=== PATIENT | female | born 1930 | race African-American/Black ===

== ENCOUNTER 2016-11-15 08:12 | Outpatient (CLI) | payer MEDICARE ==
[2016-11-15 08:29] LABS: #Basophils 0.1 thou/uL (0.0-0.2); #Eosinphils 0.1 thou/uL (0.0-0.7); #Lymphocytes 2.1 thou/uL (1.20-3.40); #Monocytes 0.5 thou/uL (0.11-0.59); %Basophils 1.1 % (0.0-1.0); %Eosinophils 1.7 % (0.0-10.0); %Lymphocytes 26.9 % (21.0-51.0); %Monocytes 6.8 % (0.0-10.0); %Neutrophils 63.4 % (42.0-75.0); Hemoglobin 13.3 g/dL (12.0-16.0); Mean Corpuscular HGB CONC 32.2 g/dL (32.0-36.0); Mean Corpuscular Hemoglobin 28.9 pg (27.0-31.0); Mean Corpuscular Volume 89.7 fl (81.0-99.0); Mean Platelet Volume 7.2 fL (7.4-10.4); Platelet Count 355 thou/uL (130-400); RBC Distribution Width 12.2 % (11.5-14.5); Red Blood Cell (RBC) Count 4.62 mill/uL (4.20-5.40); White Blood Cell (WBC) Count 7.9 thou/uL (4.8-10.8)
[2016-11-15 09:08] LABS: ALT (SGPT) 25 U/L (8-55); AST (SGOT) 23 U/L (5-34); Albumin 4.3 g/dL (3.4-4.8); Alkaline Phosphatase 67 U/L (40-150); Anion Gap 13 mmol/L (10-20); BUN (Urea Nitrogen) 14 mg/dL (9.8-20.1); Bilirubin, Direct 0.1 mg/dL (0.1-0.3); Bilirubin, Total 0.4 mg/dL (0.2-1.2); Calc. Creatinine Clearance 0 mL/min (70-130); Calcium 9.7 mg/dL (7.8-10.44); Carbon Dioxide 26 mmol/L (23-31); Cardiac Risk 4.4 (Less than 4.5); Chloride 105 mmol/L (98-107); Cholesterol 195 mg/dl (< 200 Desired); Estimated GFR-MDRD 62; Glucose 106 mg/dL (83-110); HDL Cholesterol 44 mg/dL (>60 Neg Risk); LDL Cholesterol, Calculated 109 mg/dL; Potassium 3.8 mmol/L (3.5-5.1); Protein, Total 7.8 g/dL (6.0-8.3); Sodium 140 mmol/L (136-145); Triglycerides 209 mg/dL (Less than 150)
== END 2016-11-15 08:13 ==
LOC: MADLABBHPM 08:12
PROVIDERS: ATTEND Family Medicine
DX: I48.91 Unspecified atrial fibrillation (principal); I10 Essential (primary) hypertension
CPT/HCPCS: 36415; 80048; 80061; 80076; 85025

== ENCOUNTER 2017-02-16 08:40 | Outpatient (CLI) | payer MEDICARE ==
[2017-02-16 09:09] LABS: #Basophils 0.1 thou/uL (0.0-0.2); #Eosinphils 0.2 thou/uL (0.0-0.7); #Monocytes 0.5 thou/uL (0.11-0.59); #Neutrophils 4.3 thou/uL (1.40-6.50); %Basophils 1.3 % (0.0-1.0); %Eosinophils 2.6 % (0.0-10.0); %Lymphocytes 28.3 % (21.0-51.0); %Monocytes 6.8 % (0.0-10.0); %Neutrophils 61.1 % (42.0-75.0); Hemoglobin 13.2 g/dL (12.0-16.0); Mean Corpuscular HGB CONC 33.6 g/dL (32.0-36.0); Mean Corpuscular Hemoglobin 30.1 pg (27.0-31.0); Mean Corpuscular Volume 89.5 fl (81.0-99.0); Mean Platelet Volume 7.2 fL (7.4-10.4); Platelet Count 348 thou/uL (130-400); RBC Distribution Width 12.8 % (11.5-14.5); White Blood Cell (WBC) Count 7.1 thou/uL (4.8-10.8)
[2017-02-16 09:15] LABS: ALT (SGPT) 23 U/L (8-55); AST (SGOT) 17 U/L (5-34); Albumin 4.1 g/dL (3.4-4.8); Alkaline Phosphatase 71 U/L (40-150); Anion Gap 14 mmol/L (10-20); BUN (Urea Nitrogen) 18 mg/dL (9.8-20.1); Bilirubin, Direct 0.2 mg/dL (0.1-0.3); Bilirubin, Total 0.4 mg/dL (0.2-1.2); Calc. Creatinine Clearance 0 mL/min (70-130); Calcium 9.7 mg/dL (7.8-10.44); Carbon Dioxide 25 mmol/L (23-31); Cardiac Risk 3.9 (Less than 4.5); Chloride 105 mmol/L (98-107); Cholesterol 178 mg/dl (< 200 Desired); Estimated GFR-MDRD 56; Glucose 104 mg/dL (83-110); HDL Cholesterol 46 mg/dL (>60 Neg Risk); LDL Cholesterol, Calculated 97 mg/dL; Potassium 3.9 mmol/L (3.5-5.1); Sodium 140 mmol/L (136-145); Triglycerides 175 mg/dL (Less than 150)
== END 2017-02-16 08:41 | disposition home or self-care (01) ==
LOC: MADLABBHPM 08:40
PROVIDERS: ATTEND Family Medicine
DX: N18.3 Chronic kidney disease, stage 3 (moderate) (principal); E78.5 Hyperlipidemia, unspecified; I48.91 Unspecified atrial fibrillation
CPT/HCPCS: 36415; 80048; 80061; 80076; 85025

== ENCOUNTER 2019-04-11 07:15 | Emergency (ER) | payer MEDICARE ==
[2019-04-11] MEDS ORDERED: predniSONE 20 MG TAB ONE (08:24)
== END 2019-04-11 08:30 | disposition home or self-care (01) ==
LOC: MADERS 07:15
DX: M54.41 Lumbago with sciatica, right side (principal); I25.10 Atherosclerotic heart disease of native coronary artery without angina pectoris; I10 Essential (primary) hypertension; E78.5 Hyperlipidemia, unspecified; E78.00 Pure hypercholesterolemia, unspecified; M19.90 Unspecified osteoarthritis, unspecified site; Z79.82 Long term (current) use of aspirin; Z79.899 Other long term (current) drug therapy
CPT/HCPCS: 99283; J7512

== ENCOUNTER 2019-04-29 09:56 | Outpatient (CLI) | payer MEDICARE ==
--- NOTE | 2019-04-29 10:50 | CT ---
LUMBAR SPINE CT WITHOUT CONTRAST: DATE: 04/29/2019. COMPARISON: None. HISTORY: Sciatica without trauma. Right-sided pain. TECHNIQUE: Axial CT imaging obtained at 2.5 mm intervals through the lumbar spine without contrast. Coronal and sagittal reformatted imaging obtained. FINDINGS: Evaluation for central canal and/or neural foraminal stenosis is limited on routine CT. Incompletely imaged transvenous pacing device present. Small pericardial effusion partially visualize d. There is mild nonspecific distention of the gallbladder. Probable small cyst emanates from upper pole of right kidney measuring 1 cm. There are multiple tiny hyperdense peripheral renal lesions bilaterally, too small to characterize. At the L2-3 level there is retrolisthesis measuring 4 mm. At L4-5 there is 6 mm of anterolisthesis. T12-L1: There is no osseous cause of significant central canal or neural foraminal stenosis. Mild jay ateral facet hypertrophy. L1-2: Bilateral facet hypertrophy present. Probable mild left neural foraminal stenosis. No osseous c ause of significant central canal or right neural foraminal stenosis. L2-3: There is disc space narrowing and vacuum disc formation with anterior osteophyte formation and a probable small disc bulge. There is moderate bilateral neural foraminal stenosis on the basis of facet hypertrophy. Probable at least mild central canal stenosis. L3-4: There is disc space narrowing and vacuum disc formation. Bilateral facet hypertrophy. Moderate bilateral neural foraminal stenosis and at least mild central canal stenosis. L4-5: There is disc space narrowing and vacuum disc formation with significant bilateral facet hypert rophy and severe bilateral neural foraminal stenosis. Probable mild/moderate central canal stenosis. L5-S1: Vacuum disc formation. Bilateral facet hypertrophy with moderate/severe bilateral neural louis inal stenosis. No osseous cause of significant central canal stenosis. No worrisome lytic or blastic bone lesion. No acute fracture or evidence of dislocation. IMPRESSION: Multilevel degenerative change within the lumbar spine as detailed above. Transcribed Date/Time: 04/29/2019 11:04 AM
== END 2019-04-29 09:57 | disposition home or self-care (01) ==
LOC: MADCT 09:56
PROVIDERS: ATTEND Family Medicine
DX: M54.30 Sciatica, unspecified side (principal); M47.816 Spondylosis without myelopathy or radiculopathy, lumbar region; M47.817 Spondylosis without myelopathy or radiculopathy, lumbosacral region
CPT/HCPCS: 72131